=== PATIENT | female | born 1975 | race Caucasian/White ===

== ENCOUNTER 2019-05-24 | Emergency (ER) | payer OTHER ==
[~2019-05-24] MED LIST: AMPICILLIN500 MG PO; BACTRIM DS1 TAB PO; CLARITHROMYC500 M2 PO; EQ OMEPRAZOLE20 MG PO; FLEXERIL PO; NAPROSYN500 MG PO; NORCO1 TA1 PO; PERCOCET 5/321 COMBO PO; ULTRAM50 M1 PO
[2019-05-24] MEDS ORDERED: DIFLUCAN100 M1 PO (20:28)
[2019-05-24] MEDS ORDERED: METRONIDAZOL500 MG PO (20:28)
== END 2019-05-24 20:35 | disposition home or self-care (01) | DRG 759 ==
DX: A64 Unspecified sexually transmitted disease (principal); F17.210 Nicotine dependence, cigarettes, uncomplicated